=== PATIENT | female | born 1935 | race Caucasian/White ===

== ENCOUNTER 2017-11-28 11:24 | Observation (INO) ==
[2017-11-28] MEDS ORDERED: *HR* Labetalol 100 MG/20 ML MDV IVP ONE (11:35)
--- NOTE | 2017-11-28 11:39 | Emergency Department Note ---
Disposition Clinical Impression: Acute hyponatremia, Hypertensive urgency Disposition: Admitted As Inpatient Condition: Fair Instructions: Hyponatremia (ED), Chronic Hypertension (ED), Hypertensive Crisis (ED) Referrals: Rajesh Ruelas DO [Primary Care Provider] - (Follow-up in 2-3 days for reevaluation.) Forms: ED Satisfaction Letter, Work/School Release Time of Disposition: 13:22 (Dr Hansen) General Adult HPI - General Chief complaint: ED General Medical Stated complaint: HTN Time Seen by Provider: 11/28/17 11:34 Source: patient Mode of arrival: ambulatory Limitations: no limitations Nursing Notes Reviewed: Yes Vital Signs Reviewed: Yes - History of Present Illness HPI Narrative: 82-year-old female coming in from home secondary to elevated blood pressure. The patient has a history of uncontrolled blood pressure and was recently seen by PCP and had her medication adjusted. She woke up this morning with sensation of slight headache and not feeling well and measured her blood pressure over 200 systolic. The patient denies any associated chest pain, blurred vision, neck pain, shortness of breath, extremity weakness or numbness, or any abdominal pain. Onset (ago): day(s) Pain Scale: 0 Consistency: Improving Improves with: nothing Worsens with: nothing Associated symptoms: Denies: confusion, cough, diaphoresis, fever/chills, loss of appetite, malaise, nausea/vomiting, rash, seizure, shortness of breath, syncope, weakness Treatments Prior to Arrival: none - Related Data Home Medications Medication Instructions Recorded Confirmed Levothyroxine [Synthroid] 100 mcg PO DAILY 10/24/15 11/28/17 Metoprolol [Lopressor] 50 mg PO BID 10/24/15 11/28/17 Omeprazole [PriLOSEC] 20 mg PO DAILY 11/28/17 11/28/17 Rosuvastatin [Crestor] 20 mg PO DAILY 11/28/17 11/28/17 hydrALAZINE [HydrALAZINE] 25 mg PO TID 11/28/17 11/28/17 Allergies Allergy/AdvReac Type Severity Reaction Status Date / Time No Known Allergies Allergy Verified 11/28/17 11:24 All systems ED: reviewed and negative except as stated. Review of Systems: As Per HPI Past Medical History - Past Medical History Medical history: Reports: GERD, hypertension, thyroid disease Psychiatric history: Reports: no psych history - Social History Smoking Status: Never smoker Smokeless Tobacco Status: No Alcohol use: Reports: none Drug use: Reports: none Physical Exam - General Limitations: no limitations General appearance: alert, in no apparent distress - Head Head exam: atraumatic, normocephalic, normal inspection - Eye Eye exam: Present: normal appearance, PERRL, EOMI, nystagmus. Absent: scleral icterus, conjunctival injection, miosis, mydriasis - ENT ENT exam: normal exam, normal oropharynx, mucous membranes moist - Neck Neck exam: Present: normal inspection, full ROM, trachea midline - Chest Chest inspection: Present: normal inspection, symmetric chest wall rise - Respiratory Respiratory exam: Present: normal lung sounds bilaterally - Cardiovascular Cardiovascular exam: Present: regular rate, normal rhythm, normal heart sounds - Abdominal Exam Abdominal exam: Present: soft, Non-Tender. Absent: tenderness, distention, guarding, rebound, rigidity, mass, pulsatile mass - Extremities Exam Extremities exam: Present: normal inspection, full ROM. Absent: tenderness, pedal edema - Neurological Exam Neurological exam: Present: alert, oriented X3, CN II-XII intact, normal gait. Absent: motor sensory deficit - Psychiatric Psychiatric exam: Present: normal affect, normal mood - Skin Skin exam: Present: warm, dry, intact, normal color Course - Reevaluation(s) Reevaluation #1: Patient's pressure improve with no intervention and her headache and nausea improved. Time: 11:59 Reevaluation #2: The patient ambulated in the department with no complication but states that she still feels slightly uncomfortable. She does not want to go home but better once be admitted for inpatient evaluation. The case with the hospitalist who will admit the patient. Time: 13:59 Vital Signs Temperature 97.7 F 11/28/17 11:27 Pulse Rate 81 11/28/17 11:27 Respiratory Rate 20 11/28/17 11:27 Blood Pressure 211/111 11/28/17 11:27 O2 Sat by Pulse Oximetry 95 11/28/17 11:27 Temperature 97.7 F 11/28/17 11:27 Pulse Rate 85 11/28/17 13:50 Respiratory Rate 16 11/28/17 13:50 Blood Pressure 184/111 11/28/17 13:50 O2 Sat by Pulse Oximetry 96 11/28/17 13:50 Oxygen Delivery Oxygen Delivery Room Air Medical Decision Making - MDM Narrative Medical decision making narrative: The patient's hypertensive urgency that improve prior to labetalol was given. The patient was given the labetalol and seemed to stabilize her blood pressure to baseline. She has an incidental hyponatremia with no systemic complaints. The patient felt better after IV fluid resuscitation. The patient has a history of hyponatremia in the past and was admitted for evaluation. I spoke to patient and daughter about her level and she could be admitted for observation until her levels are increased. Since the patient has no other focal complaints with her blood pressure within normal the family would like to take her home and observe her there and they are aware of the risks and benefits of being in the hospital and going home with her current sodium level. The patient does not with stay in the hospital and will come back to the ED if she has worsening symptoms. 200: The patient changed her mind and would like to be admitted for further treatment and stabilization in the inpatient setting. - Medical Records Medical records reviewed: Yes I reviewed the patient's medical records. - Lab Data Result diagrams: 11/28/17 11:51 11/28/17 11:51 Lab Results 11/28/17 11/28/17 11/28/17 Range/Units 11:51 11:51 11:51 WBC 5.7 (4.3-11.1) K/mcL RBC 4.55 (3.82-4.97) M/mcL Hgb 13.9 (11.5-15.4) g/dL Hct 39.6 (35.3-44.9) % MCV 87.0 (83.0-100.0) fL MCH 30.5 (28.0-33.3) pg MCHC 35.1 (31.6-35.5) g/dL RDW 12.5 (11.5-14.5) % Plt Count 228 (140-400) K/mcL MPV 9.0 L (9.4-12.4) fL Immature Gran % 0.7 (0-4) % Seg Neutrophils % 59.1 % Lymphocytes % 28.4 % Monocytes % 9.2 % Eosinophils % 1.9 % Basophils % 0.7 % Neutrophils # 3.4 (1.6-8.9) K/mcL Lymphocytes # 1.6 (0.6-4.6) K/mcL Monocytes # 0.5 (0.0-1.3) K/mcL Eosinophils # 0.1 (0.0-0.6) K/mcL Basophils # 0.0 (0.0-0.2) K/mcL Sodium 123 L (136-145) mEq/L Potassium 3.5 (3.5-5.1) mEq/L Chloride 89 L (98-107) mEq/L Carbon Dioxide 25 (23-29) mEq/L BUN 9 (8-23) mg/dL Creatinine 0.71 (0.60-1.20) mg/dL Est GFR ( Amer) > 60 (> 60) Est GFR (Non-Af Amer) > 60 (> 60) BUN/Creatinine Ratio 13 (6-26) Glucose 124 H (70-105) mg/dL Calculated Osmolality 256 L (280-300) Calcium 9.3 (8.6-10.3) mg/dL Troponin I < 0.03 (< 0.04) ng/mL B-Natriuretic Peptide 198 H (Less than 100) pg/mL - Radiology Data Radiology results reviewed: Yes I reviewed the patient's radiology results. Chest X-Ray 11/28/17 11:39 IMPRESSION: Cardiomegaly without overt pulmonary edema. D/ / Mari Bullard MD / Mari Bullard MD Interpreting Provider: Mari Bullard MD Critical Care Time Critical Care Time: Yes Total Critical Care Time: 30 Attestation: Critical care performed: Time is exclusive of separately billable procedures. Time includes: direct patient care, patient reassessment, coordination of patient care, interpretation of data (laboratory data, radiology data, and respiratory data), review of patient's medical records, medical consultation and documentation of patient care. Procedures included in critical care time: Procedures excluded from critical care time:
[2017-11-28 11:59] LABS: Basophils % 0.7 %; Eosinophils # 0.1 K/mcL (0.0-0.6); Eosinophils % 1.9 %; Hematocrit 39.6 % (35.3-44.9); Hemoglobin 13.9 g/dL (11.5-15.4); Immature Granulocytes % 0.7 % (0-4); Lymphocytes # 1.6 K/mcL (0.6-4.6); Lymphocytes % 28.4 %; Mean Corpuscular HGB Conc 35.1 g/dL (31.6-35.5); Mean Corpuscular Hemoglobin 30.5 pg (28.0-33.3); Monocytes # 0.5 K/mcL (0.0-1.3); Monocytes % 9.2 %; Neutrophils # 3.4 K/mcL (1.6-8.9); Platelet Count 228 K/mcL (140-400); Red Blood Count 4.55 M/mcL (3.82-4.97); Red Cell Distribution Width 12.5 % (11.5-14.5); Segmented Neutrophils % 59.1 %
[2017-11-28] MEDS ORDERED: *HR* Labetalol 20 MG/4 ML SYRINGE IVP ONE (12:03)
[2017-11-28 12:19] LABS: BUN/Creatinine Ratio 13 (6-26); Blood Urea Nitrogen 9 mg/dL (8-23); Calcium 9.3 mg/dL (8.6-10.3); Carbon Dioxide 25 mEq/L (23-29); Chloride 89 mEq/L (98-107); Glucose 124 mg/dL (70-105); Osmolality,Calculated 256 (280-300); Potassium 3.5 mEq/L (3.5-5.1); Sodium 123 mEq/L (136-145); eGFR For Non-African Americans > 60 (> 60)
[2017-11-28 12:24] LABS: Troponin I < 0.03 ng/mL (< 0.04)
[2017-11-28] MEDS ORDERED: 0.9 % Sodium Chloride 500 ML IVC ONE (12:36)
[2017-11-28] MEDS ORDERED: cloNIDine HCl 0.1 MG TABLET PO ONE (13:50)
[2017-11-28] MEDS ORDERED: *HR* HYDROcodone/Acet 5/325 mg TABLET PO PRN (14:37)
[2017-11-28] MEDS ORDERED: Ondansetron 4 MG/2 ML VIAL IVP PRN (14:37)
[2017-11-28] MEDS ORDERED: Naloxone 0.4 MG/ML INJ IVP PRN (14:37)
[2017-11-28] MEDS ORDERED: Ibuprofen 400 MG TABLET PO PRN (14:37)
[2017-11-28] MEDS ORDERED: Acetaminophen 325 MG TABLET PO PRN (14:37)
[2017-11-28] MEDS ORDERED: Ketorolac 30 MG/ML VIAL IVP PRN (14:37)
[2017-11-28] MEDS: hydrALAZINE 25 MG TABLET PO SCH ×2 (15:55→20:32)
--- NOTE | 2017-11-28 16:38 | Electrocardiograph Report ---
[address] [place], [place] [address] Test Date: 2017-11-28 Pat Name: Bree Francois Department: [id number] Room: Gender: F Igniter Capper: [id number] : 1935 Requested By: Jakub Tripp Order Number: [id number] Reading MD: Deidra Lazcano Measurements Intervals [place] Rate: 78 P: 20 MO: 210 QRS: -8 QRSD: 90 T: -8 QT: 371 QTc: 405 Interpretive Statements SINUS RHYTHM WITH FIRST DEGREE AV BLOCK VOLTAGE CRITERIA FOR LVH INFERIOR MYOCARDIAL INFARCTION, OF INDETERMINATE AGE Electronically Signed On 11-28-2017 16:36:27 EDT by Deidra Lazcano
[2017-11-28] MEDS: 0.9 % Sodium Chloride w KCl 20 MEQ/1,000 ML MLS IVC SCH (20:33)
[2017-11-28 21:14] LABS: Bilirubin,Urine Negative (Negative); Blood,Urine Negative (Negative); Clarity,Urine Clear (Clear); Color,Urine Yellow (Yellow); Glucose,Urine (UA) Normal (Normal); Ketones,Urine Negative (Negative); Leukocyte Esterase,Urine Negative (Negative); Nitrite,Urine Negative (Negative); Protein,Urine Negative (Neg-Trace); Specific Gravity,Urine 1.015 (1.010-1.025); Urobilinogen,Urine Normal (Normal)
[2017-11-29 06:30] LABS: Basophils % 0.6 %; Eosinophils # 0.2 K/mcL (0.0-0.6); Eosinophils % 2.9 %; Hemoglobin 13.1 g/dL (11.5-15.4); Immature Granulocytes % 0.2 % (0-4); Lymphocytes # 1.5 K/mcL (0.6-4.6); Lymphocytes % 28.7 %; Mean Corpuscular HGB Conc 35.4 g/dL (31.6-35.5); Mean Corpuscular Hemoglobin 31.1 pg (28.0-33.3); Mean Corpuscular Volume 87.9 fL (83.0-100.0); Mean Platelet Volume 10.6 fL (9.4-12.4); Monocytes # 0.6 K/mcL (0.0-1.3); Monocytes % 11.5 %; Neutrophils # 2.9 K/mcL (1.6-8.9); Platelet Count 183 K/mcL (140-400); Red Blood Count 4.21 M/mcL (3.82-4.97); Red Cell Distribution Width 12.8 % (11.5-14.5); Segmented Neutrophils % 56.1 %
[2017-11-29 06:53] LABS: Alanine Aminotransferase 9 Units/L (7-52); Albumin/Globulin Ratio 1.4 (1.1-2.2); Alkaline Phosphatase 90 Units/L (34-104); Aspartate Amino Transferase 14 Units/L (13-39); BUN/Creatinine Ratio 13 (6-26); Bilirubin,Total 0.6 mg/dL (0.3-1.0); Blood Urea Nitrogen 9 mg/dL (8-23); Calcium 8.9 mg/dL (8.6-10.3); Carbon Dioxide 23 mEq/L (23-29); Chloride 99 mEq/L (98-107); Globulin 2.8 g/dL (2.4-3.5); Glucose 95 mg/dL (70-105); Osmolality,Calculated 266 (280-300); Potassium 3.6 mEq/L (3.5-5.1); Sodium 129 mEq/L (136-145); Total Protein 6.8 g/dL (6.4-8.9); eGFR For Non-African Americans > 60 (> 60)
[2017-11-29 07:17] VITALS: BP 144/84
[2017-11-29] MEDS: hydrALAZINE 25 MG TABLET PO SCH (07:31)
[2017-11-29] MEDS: 0.9 % Sodium Chloride w KCl 20 MEQ/1,000 ML MLS IVC SCH (07:32)
--- NOTE | 2017-11-29 10:00 | Internal Med History&Physical ---
Date of Encounter: 11/29/17 Time of Encounter: 09:25 Assessment and Plan (1) Hypertensive urgency Current visit: Yes Status: Acute She was given labetalol in emergency room and blood pressure has stabilized. (2) Acute hyponatremia Current visit: Yes Status: Acute Suspect SIADH. Etiology uncertain but possibly due to use of NSAIDs. IV normal saline has been started through emergency room. Internal Medicine - H&P: HPI Chief complaint: Headache, hypertension Admitted From: Emergency Dept Plans for Post Hospital Care: Home History of present illness: Ms. Francois is a 82 year old female who came to emergency room stating she awakened with a slight headache and felt her blood pressure was elevated. She checked blood pressure at home and found it to be high. She came to emergency room and was evaluated and was found to have hypertension with blood work showing hyponatremia. She was admitted to [facility] floor for ongoing care needs. She states she feels improved at present time and back to her baseline. She reports she was changed from diltiazem to hydralazine a few weeks ago by her PCP because of unavailability of diltiazem through her pharmacy provider. She has been using hydralazine 3 times a day with a dose in the evening, midnight, and clinical research physician. She reports her blood pressures have frequently been 150s systolic. She also uses metoprolol. She denies IA heart failure angina DVT or pulmonary embolus. She reports having hyponatremia approximately August 2009 and was told the etiology was drinking excessive water. She denies recurrent hyponatremia until present time. She states she has not been drinking more than 32 Ounces of water daily. She has had no vomiting or diarrhea. She has used few ibuprofen the past week because of headaches. Past Med Surg Social Fam HX - Past Medical History Medical history: GERD, hypertension, thyroid disease Additional medical history: Hypothyroidism Psychiatric history: no psych history - Past Surgical History Additional surgical history: Bladder repair - Social History Smoking Status: Never smoker Smokeless Tobacco Status: No Alcohol use: none Drug use: none - Family History Mother Living Status: Hx Family Cardiac Disorders: Yes (CAD) Internal Medicine - H&P: Meds Levothyroxine [Synthroid] 100 mcg PO DAILY 10/24/15 [History] Metoprolol [Lopressor] 50 mg PO BID 10/24/15 [History] Omeprazole [PriLOSEC] 20 mg PO DAILY 11/28/17 [History] Rosuvastatin [Crestor] 20 mg PO DAILY 11/28/17 [History] hydrALAZINE [HydrALAZINE] 25 mg PO TID 11/28/17 [History] 3 Allergy/AdvReac Type Severity Reaction Status Date / Time No Known Allergies Allergy Verified 11/28/17 11:24 All Systems PM: A 10-system review of systems was performed and is negative for pertinent findings except as documented above in the HPI. Review of systems: Gen.: She states her weight has increased approximately 10 pounds in the past year Cardiovascular: As per history of present illness Respiratory: She is a lifelong nonsmoker and has no known chronic lung disease GI: She has had cholecystectomy. She denies disorders of her liver or exocrine pancreas : She denies hematuria dysuria or kidney stones. She had bladder lift surgery in the past. Neurologic: She denies large distribution strokes or seizures. Endocrine: She has hypothyroidism and hyperlipidemia. She denies diabetes. Hematology/oncology: She has history of anemia. She denies internal malignancies or other blood disorders Psychiatric: She denies anxiety depression or other mental health issues [place] skeletal: She denies arthritis gout or other bone joint or muscle disorders. - Constitutional Vitals: Temp Pulse Resp BP Pulse Ox 98.6 F 78 14 144/84 98 11/29/17 07:16 11/29/17 07:16 11/29/17 07:16 11/29/17 07:16 11/29/17 07:29 Exam: Gen.: She is a well-developed well-nourished female resting comfortably in bed who appears in no acute distress HEENT: Head is atraumatic and normocephalic. Eyes: EOMI. There is no scleral icterus. Mouth: Mucosa is moist. Neck: Supple and nontender. There is no thyromegaly or adenopathy noted. Heart: Regular without murmurs gallops or ectopics Lungs: No wheezes or crackles are heard. Abdomen: Soft and nontender. No masses or guarding are noted. Extremities: There is no cyanosis edema or clubbing noted. Dorsalis pedis and posttibial pulses are 1-2 over 2 bilaterally. Neurologic: Mental status: She is talkative and a good historian. Cranial nerves: Smile is symmetric. Forehead wrinkles bilaterally. Tongue protrudes midline. EOMI. Motor: There is no pronator drift. Cerebellar: Finger to nose is intact bilaterally. Skin: Warm and dry Internal Med - H&P Results - Labs CBC & Chem 7: 11/29/17 05:46 11/29/17 05:46 Labs: Short CBC 11/29/17 Range/Units 05:46 WBC 5.1 (4.3-11.1) K/mcL Hgb 13.1 (11.5-15.4) g/dL Hct 37.0 (35.3-44.9) % Plt Count 183 (140-400) K/mcL Neutrophils # 2.9 (1.6-8.9) K/mcL BMP 11/29/17 05:46 Sodium 129 L Potassium 3.6 Chloride 99 Carbon Dioxide 23 BUN 9 Creatinine 0.71 Glucose 95 Calcium 8.9 Liver Function 11/29/17 Range/Units 05:46 Total Bilirubin 0.6 (0.3-1.0) mg/dL AST 14 (13-39) Units/L ALT 9 (7-52) Units/L Alkaline Phosphatase 90 (34-104) Units/L Albumin 4.0 (3.5-5.7) g/dL Urine 11/28/17 Range/Units 21:00 Urine Color Yellow (Yellow) Urine Clarity Clear (Clear) Urine pH 7.0 (5.0-8.0) pH Units Ur Specific [place] 1.015 (1.010-1.025) Urine Protein Negative (Neg-Trace) mg/dL Urine Glucose (UA) Normal (Normal) mg/dL
--- NOTE | 2017-11-29 10:29 | Discharge Summary ---
Orders not resulted at time of discharge: Pending orders 11/29/17 05:46 Comprehensive Metabolic Panel AM 0400 Thyroid Stimulating Hormone AM 0400 Date of Encounter: 11/29/17 Time of Encounter: 09:25 - Discharge Diagnosis (1) Hypertensive urgency Priority: Primary Status: Resolved (2) Acute hyponatremia Priority: Secondary Status: Acute Hospital course: Ms. Francois is a 82 year old female who came to emergency room stating she awakened with a slight headache and felt her blood pressure was elevated. She checked blood pressure at home and found it to be high. She came to emergency room and was evaluated and was found to have hypertension with blood work showing hyponatremia. She was admitted to [facility] for ongoing care needs. Initial orders were written by the emergency room physician. I saw her on November 29 and performed the history physical and discharge. She was given IV normal saline in emergency room. Her sodium improved to 129 by the following morning. Her PCP can monitor labs to ensure continued improvement. Blood pressure remained stable. She was asymptomatic when I saw her November 29 and felt stable to be discharged home. I told her that metoprolol was available as Toprol XL 24-hour medication and she wished to change to this from Lopressor. I also told her I was unaware diltiazem was not available. I renewed prescription for diltiazem at a dose 180 mg daily. She will be given a prescription for amlodipine 5 mg daily to use only if diltiazem is not available. She will be discharged home and follow with her PCP Dr. Ruelas within 1 week. - Time Spent with Patient Total time spent providing and/or coordinating discharge services: - Discharge Medications Prescriptions: Diltiazem CD (24hr) [Cardizem CD] 180 mg PO DAILY #30 cap.er.24h Metoprolol Succinate [Toprol Xl] 100 mg PO DAILY #30 tab.er.24h Home Medications: Levothyroxine [Synthroid] 100 mcg PO DAILY 10/24/15 [History] Omeprazole [PriLOSEC] 20 mg PO DAILY 11/28/17 [History] Rosuvastatin [Crestor] 20 mg PO DAILY 11/28/17 [History] Diltiazem CD (24hr) [Cardizem CD] 180 mg PO DAILY #30 cap.er.24h 11/29/17 [Rx] Metoprolol Succinate [Toprol Xl] 100 mg PO DAILY #30 tab.er.24h 11/29/17 [Rx] Allergies/Adverse Reactions: 3 Allergy/AdvReac Type Severity Reaction Status Date / Time No Known Allergies Allergy Verified 11/28/17 11:24 Date of admission: 11/28/17 14:13 Primary care physician: Rajesh Ruelas DO - Constitutional Vitals: Temp Pulse Resp BP Pulse Ox 98.6 F 78 14 144/84 98 11/29/17 07:16 11/29/17 07:16 11/29/17 07:16 11/29/17 07:16 11/29/17 07:29 - Patient Status Disposition: Home, Self-Care Condition: Fair - Discharge Instructions Follow Up With: Rajesh Ruelas DO [Primary Care Provider] - 1 week - Diet and Activity Activity: resume usual activities as tolerated Diet: advance to your usual diet
[2017-11-29 11:17] LABS: Thyroid Stimulating Hormone 1.755 mcIU/mL (0.340-5.600)
== END 2017-11-29 11:16 | disposition home or self-care (01) ==
LOC: INPPIK 11:24 → EMEROOPIK 11:24 → INPPIK 14:31
PROVIDERS: ADMIT Internal Medicine; ATTEND Internal Medicine